=== PATIENT | male | born 2000 | race Two or more races ===

== ENCOUNTER 2021-10-31 11:25 | Emergency (ER) | payer MEDICAID, OTHER ==
[~2021-10-31] VITALS: Ht 172.7 cm; Wt 74.8 kg
[2021-10-31 11:26] VITALS: BP 140/86
[2021-10-31] MEDS ORDERED: cefTRIAXone SOD 1,000 MG VL IM ONE (13:00)
[2021-10-31] MEDS ORDERED: PENI500T2 PO (13:29)
[2021-10-31] MEDS ORDERED: LIDO2SOL23 MT (13:29)
== END 2021-10-31 13:38 | disposition home or self-care (01) ==
LOC: ER 11:25
DX: J03.00 Acute streptococcal tonsillitis, unspecified (principal)
CPT/HCPCS: 96372; 99283; J0696